=== PATIENT | female | born 1935 | race Caucasian/White ===

== ENCOUNTER 2018-11-09 17:39 | Inpatient (IN) | payer MEDICARE, OTHER ==
[~2018-11-09] VITALS: Ht 162.6 cm; Wt 54.4 kg
[~2018-11-09 17:39] MED LIST: ALEN70TA5 PO; AMOX1TAB9 PO; LEVO50TA7 PO; MIRT7.5T8 PO
[2018-11-09] MEDS ORDERED: SOD CHLORIDE 0.9% 1,000 ML IV STA (18:02)
[2018-11-09] MEDS ORDERED: CEFEPIME 2GM/50 ML (PMX) 50 ML IVPB STA (18:02)
[2018-11-09] MEDS ORDERED: VANCOMYCIN 1 GM (PMX) 250 ML IVPB ONE (18:30)
--- NOTE | 2018-11-09 20:10 | ERD ---
ER Documentation Chief Complaint Chief Complaint MORE ALTERED THAN NORMAL SINCE LAST NIGHT. DEMENTIA HPI This is an 82-year-old female with a history of dementia who seemed a bit more altered and demented last night and today was a bit combative with staff there. Patient will not respond to my questions but will look at me. Very limited history I do not know if she is had a fever or any other issues such as GI symptoms chest pain etc. The patient will not answer any my questions. ROS All systems reviewed and are negative except as per history of present illness. PMhx/Soc Hx Psychiatric Problems: Yes (DEMENTIA, THYROID) Smoking Status: Unknown if ever smoked FmHx Family History: No coronary disease Physical Exam Vitals Vital Signs Date Temp Pulse Resp B/P (MAP) Pulse Ox O2 O2 Flow FiO2 Time Delivery Rate 11/09/18 78 21 136/66 93 Nasal 2.0 20:35 (89) Cannula 11/09/18 Nasal 2 18:38 Cannula 11/09/18 82 19 115/72 92 Nasal 2.0 18:35 (86) Cannula 11/09/18 98.4 90 16 121/61 98 17:48 (81) Physical Exam Const: Well-developed, well-nourished Head: Atraumatic, normocephalic Eyes: Normal Conjunctiva, PERRLA, EOMI, normal sclera, no nystagmus ENT: Normal External Ears, Nose and Mouth, moist mucus membranes. Neck: Full range of motion. No meningismus, no lymphadenopathy. Resp: Clear to auscultation bilaterally, no wheezing, rhonchi, rales Cardio: Regular rate and rhythm, no murmurs, S1 S2 present Abd: Soft, non tender x 4, non distended. Normal bowel sounds, no guarding or rebound, no pulsitile abdominal masses or bruits Skin: No petechiae or rashes, no ecchymosis , no maculopapular rash Back: No midline or flank tenderness Ext: No cyanosis, or edema, FROM x 4, normal inspection, neurovascularly intact x 4 Neur: Awake and alert, STR 5/5 x 4, sensation intact x 4, no focal findings, cerebellum intact Psych: Patient will look at me but not talk to me she is very flat Result Diagram: 11/09/18181611/09/181816 Results 24 hrs Laboratory Tests Test 11/09/18 18:16 11/09/18 18:17 11/09/18 20:13 POC Venous Lactate 1.4 mmol/L White Blood Count 11.5 10^3/ul Red Blood Count 5.09 10^6/ul Hemoglobin 14.5 g/dl Hematocrit 45.6 % Mean Corpuscular Volume 89.6 fl Mean Corpuscular Hemoglobin 28.5 pg Mean Corpuscular 31.8 g/dl Hemoglobin Concent Red Cell Distribution Width 13.2 % Platelet Count 357 10^3/UL Mean Platelet Volume 9.6 fl Immature Granulocytes % 0.700 % Neutrophils % 69.9 % Lymphocytes % 13.0 % Monocytes % 8.8 % Eosinophils % 7.0 % Basophils % 0.6 % Nucleated Red Blood Cells % 0.0 /100WBC Immature Granulocytes # 0.080 10^3/ul Neutrophils # 8.0 10^3/ul Lymphocytes # 1.5 10^3/ul Monocytes # 1.0 10^3/ul Eosinophils # 0.8 10^3/ul Basophils # 0.1 10^3/ul Nucleated Red Blood Cells # 0.0 10^3/ul Prothrombin Time 13.1 Sec Prothrombin Time Ratio 1.0 INR International 0.98 Normalized Ratio Activated Partial Thromboplast 30.9 Sec Time Sodium Level 141 mmol/L Potassium Level 3.8 mmol/L Chloride Level 102 mmol/L Carbon Dioxide Level 32 mmol/L Anion Gap 7 Blood Urea Nitrogen 13 mg/dl Creatinine 0.74 mg/dl Est Glomerular Filtrat mL/min Rate mL/min Glucose Level 113 mg/dl Calcium Level 9.4 mg/dl Total Bilirubin 0.8 mg/dl Direct Bilirubin 0.00 mg/dl Indirect Bilirubin 0.8 mg/dl Aspartate Amino 18 IU/L Transf (AST/SGOT) Alanine 10 IU/L Aminotransferase (ALT/SGPT) Alkaline Phosphatase 85 IU/L Troponin I < 0.012 ng/ml Total Protein 6.8 g/dl Albumin 3.3 g/dl Globulin 3.50 g/dl Albumin/Globulin Ratio 0.94 Urine Color YELLOW Urine Clarity CLEAR Urine pH 6.0 Urine Specific [place] 1.012 Urine Ketones TRACE mg/dL Urine Nitrite POSITIVE mg/dL Urine Bilirubin NEGATIVE mg/dL Urine Urobilinogen NEGATIVE mg/dL Urine Leukocyte Esterase 1+ Parish/ul Urine Microscopic RBC 0 /HPF Urine Microscopic WBC 13 /HPF Urine Bacteria FEW /HPF Urine Hemoglobin 1+ mg/dL Urine Glucose NEGATIVE mg/dL Urine Total Protein NEGATIVE mg/dl Current Medications Medications Dose Sig/Thais Start Time Status Last (Trade) Ordered Route PRN Stop Time Admin Dose Reason Admin Cefepime HCl 50 ml @ ONCE STAT 11/09/18 DC 11/09/18 100 mls/hr IVPB 18:02 18:34 11/09/18 18:31 Vancomycin 250 ml @ ONCE ONCE 11/09/18 DC 11/09/18 HCl 125 mls/hr IVPB 18:30 19:53 11/09/18 20:29 Sodium 1,000 ml @ Q1H STAT 11/09/18 DC 11/09/18 Chloride 1,000 mls/hr IV 18:02 18:34 11/09/18 19:01 Procedures/[place] [address] Radiology Main Line: [phone] DIAGNOSTIC IMAGING REPORT Patient: CASSIE THOMPSON : 1935 Age: 82 Sex: F MR #: [id number] DOS: 11/09/18 1802 Ordering MD: ADRY WADSWORTH DO Location: E/R Room/Bed: PROCEDURE: XR Chest. CLINICAL INDICATION: Shortness of breath. TECHNIQUE: Single frontal view. COMPARISON: None. FINDINGS: There is consolidation overlying the left upper lung field. There is left lung base consolidation as well as likely a small left pleural effusion. There are increased interstitial markings as well as right lung base atelectasis versus scarring. The heart size is normal. There is a tortuous calcified thoracic aorta. There is no pleural effusion. There is no pneumothorax. IMPRESSION: There is consolidation overlying the left upper lung field. There is left lung base consolidation as well as likely a small left pleural effusion. There are increased interstitial markings as well as right lung base atelectasis versus scarring. Follow-up to resolution to exclude underlying neoplasm. RPTAT: QQ Isabel Basurto Physician Date Time Electronically viewed and signed by Isabel Basurto Physician on 11/09/2018 18:46 RD/ CC: ADRY WADSWORTH DO [id number] EKG: Rate/Rhythm: Normal sinus rhythm with PVCs QRS, ST, QT: NORMAL ME, QRS, QT] Impression: NORMAL EKG [place] [id number] Radiology Main Line: [phone] DIAGNOSTIC IMAGING REPORT Patient: CASSIE THOMPSON : 1935 Age: 82 Sex: F MR #: [id number] DOS: 11/09/18 180 Ordering MD: ADRY WADSWORTH DO Location: E/R Room/Bed: PROCEDURE: CT Abdomen and Pelvis without contrast. CLINICAL INDICATION: Pain. TECHNIQUE: CT scan of the abdomen and pelvis was performed on a multidetector slice CT scanner. No intravenous contrast material was utilized. Sagittal and coronal reformatted images were obtained from the axial source images. Images were reviewed on a high-resolution PACS workstation. Exam CTDlvol = a point save mGy and DLP = 485 Gy-cm. One of the following 3 dose reduction techniques were used: Automated exposure control; adjustment of the mA and/or kV according to patient size; or use of iterative reconstruction technique. DICOM images are available. COMPARISON: None. FINDINGS: There is no bowel obstruction or ileus. The appendix is not identified. There is no secondary evidence for appendicitis. There are scattered sigmoid colon diverticuli without evidence for diverticulitis. There is no free fluid. The liver is overall normal in size. There are multiple hypodense lesions scattered throughout the liver consistent with cyst, largest in the right lobe 4.1 cm diameter. The gallbladder has been removed. There is no definite biliary ductal dilation. Pancreas is normal in appearance. The spleen is unremarkable. There are no adrenal masses. The aorta is normal caliber. Atherosclerotic vascular calcifications are present. Kidneys are normal in appearance without hydronephrosis, mass or calculus. Ureters are of normal caliber and without evidence for an obstructing calculus. The urinary bladder is normal in appearance. Uterus is unremarkable. The ovaries are not well characterized. Limited evaluation of the lung bases demonstrates bibasilar atelectasis. There are emphysematous changes throughout the lungs. There are atherosclerotic calcifications of the coronary arteries. Heart is mildly enlarged. There are degenerative changes of the lumbar spine. There are L4 spondylitic defects with associated 9.5 mm anterior subluxation of L3-L4. Prominent Schmorl's node superior endplate of L3. There is metal artifact from a left hip bipolar arthroplasty in position. There are multiple lytic with lesions identified, including the T11 posterior lateral vertebral body and pedicle, right posterior lamina and transverse process of L3, right iliac wing and ischium and left ilium. IMPRESSION: 1. Multiple scattered osseous lytic lesions, suspicious for metastatic disease. 2. No bowel obstruction or ileus. 3. Scattered sigmoid colon diverticuli without evidence for diverticulitis. 4. Appendix not identified. No secondary evidence for appendicitis. 5. Multiple liver lesions, likely representing cyst. Status post cholecystectomy. 6. No obstructive uropathy. 7. Status post left hip bipolar arthroplasty in anatomic position. 8. Degenerate changes lumbar C9 as described above. 9. Emphysematous changes of the lungs. RPTAT: HMVK .Harley Murray MD, MD Date Time Electronically viewed and signed by .Harley Murray MD, on 11/09/2018 20:18 .K/ CC: ADRY WADSWORTH DO [id number] Patient has a normal lactic acid. Will admit for altered mental status of the patient's recall since she has been here but does have a left lung consolidation could be pneumonia she had blood cultures and given antibiotics we will admit panel Departure Diagnosis: Primary Impression: Altered mental status Altered mental status type: unspecified Qualified Codes: R41.82 - Altered mental status, unspecified Additional Impression: Pneumonia Pneumonia type: due to unspecified organism Laterality: left Lung location: lower lobe of lung Qualified Codes: J18.1 - Lobar pneumonia, unspecified organism Condition: Stable ADRY WADSWORTH DO Nov 09, 2018 20:08
[2018-11-09] MEDS ORDERED: SOD CHLORIDE 0.9% 1,000 ML IV SCH (21:30)
[2018-11-09] MEDS ORDERED: ACETAMINOPHEN 325 MG TAB PO PRN ×2 (21:30→22:00)
[2018-11-09] MEDS ORDERED: ONDANSETRON 4 MG INJ IV PRN ×2 (21:30→22:00)
[2018-11-09] MEDS ORDERED: NACL 0.9% 3 ML SYG IV SCH (22:00)
[2018-11-09] MEDS ORDERED: DOCUSATE SODIUM 100 MG CAP PO PRN (22:00)
[2018-11-09] MEDS ORDERED: BISACODYL (EC) 5 MG TAB PO PRN (22:00)
[2018-11-09] MEDS ORDERED: VANCOMYCIN IV PER PHARMACY XX SCH (22:00)
--- NOTE | 2018-11-09 22:45 | HP ---
Date/Time of Note Date/Time of Note DATE: 11/09/18 TIME: 22:45 Assessment/Plan VTE Prophylaxis SCD applied (from Nsg): Yes Pharmacological prophylaxis: NA/contraindicated Pharm contraindication: low risk/ambulating Lines/Catheters IV Catheter Type (from Nrsg): [place] Assessment/Plan Hospital Course This is a 82-year-old female being admitted to the telemetry floor but will be downgraded to [facility] #1 acute on chronic encephalopathy: Likely secondary to underlying healthcare associated pneumonia, urinary tract infection. Patient was initiated on broad- spectrum antibiotics. I did review the POLST form which did focus on comfort based treatment only. I will keep her on antibiotics at the current time, we will need to get in touch with next of kin regards to discussing the patient's current care and decide on if whether we should discontinue the antibiotics based on the wishes on the POLST form. Will monitor for any signs of agitation. #2 Healthcare associated pneumonia: On broad-spectrum antibiotics, will need to discuss with next of kin/POA in regards to continuing treatment #3 urinary tract infection: Broad-spectrum antibiotics, will need to discuss with next of kin/POA in regards to continue treatment #4 Suspect malignancy: Based on the chest x-ray and CT the abdomen pelvis there appears to be signs of metastatic disease. Prior to me being told about the P OLST form I did already order a CT of the chest to further evaluate we are awaiting the results for this. However given her DNR/DNI status and comfort based treatment listed on her POLST form we we will hold off on pursuing any further diagnosis of this. We will need to discuss with next of kin/POA. #4 osteoporosis: Resume as indicated #4 hypothyroidism: Continue levothyroxine check TSH #5 dementia: Resume mirtazapine when indicated #6 DVT GI prophylaxis: SCDs, no GI prophylaxis indicated #7 CODE STATUS: POLST form stating DNR/DNI, comfort based treatment, no artificial means of nutrition. Will need to discuss with family/POA regarding treatment plan and whether they would even want continue antibiotics at this point. Further treatment strategy will be implemented as per the clinical course Result Diagram: 11/09/18181611/09/187 Results 24hrs Laboratory Tests Test 11/09/18 18:16 11/09/18 18:17 11/09/18 20:13 POC Venous Lactate 1.4 White Blood Count 11.5 H Red Blood Count 5.09 Hemoglobin 14.5 Hematocrit 45.6 Mean Corpuscular Volume 89.6 Mean Corpuscular Hemoglobin 28.5 L Mean Corpuscular Hemoglobin Concent 31.8 L Red Cell Distribution Width 13.2 Platelet Count 357 Mean Platelet Volume 9.6 Immature Granulocytes % 0.700 H Neutrophils % 69.9 Lymphocytes % 13.0 L Monocytes % 8.8 Eosinophils % 7.0 Basophils % 0.6 Nucleated Red Blood Cells % 0.0 Immature Granulocytes # 0.080 H Neutrophils # 8.0 H Lymphocytes # 1.5 Monocytes # 1.0 H Eosinophils # 0.8 H Basophils # 0.1 Nucleated Red Blood Cells # 0.0 Prothrombin Time 13.1 Prothrombin Time Ratio 1.0 INR International Normalized Ratio 0.98 Activated Partial Thromboplast Time 30.9 Sodium Level 141 Potassium Level 3.8 Chloride Level 102 Carbon Dioxide Level 32 H Anion Gap 7 Blood Urea Nitrogen 13 Creatinine 0.74 Est Glomerular Filtrat Rate mL/min Glucose Level 113 Calcium Level 9.4 Total Bilirubin 0.8 Direct Bilirubin 0.00 Indirect Bilirubin 0.8 Aspartate Amino Transf (AST/SGOT) 18 Alanine Aminotransferase (ALT/SGPT) 10 L Alkaline Phosphatase 85 Troponin I < 0.012 Total Protein 6.8 Albumin 3.3 Globulin 3.50 H Albumin/Globulin Ratio 0.94 Urine Color YELLOW Urine Clarity CLEAR Urine pH 6.0 Urine Specific [place] 1.012 Urine Ketones TRACE A Urine Nitrite POSITIVE A Urine Bilirubin NEGATIVE Urine Urobilinogen NEGATIVE Urine Leukocyte Esterase 1+ H Urine Microscopic RBC 0 Urine Microscopic WBC 13 H Urine Bacteria FEW A Urine Hemoglobin 1+ H Urine Glucose NEGATIVE Urine Total Protein NEGATIVE HPI/ROS Admit Date/Time Admit Date/Time Hx of Present Illness Chief complaint: Altered mental status, combative The following history was obtained from the ED physician documentation as patient not to provide history given her dementia This is an 82-year-old female with a history of dementia who presented from [facility] for more altered and combative behavior. According to staff the patient had been noticeably more altered and she was combative with the staff. Unknown what her baseline is. She does turn to sound and look however she does not respond to questions. She was the same way apparently in the emergency room as well. There is no family available. In the emergency department she had imaging studies are performed including a CT of the abdomen pelvis which showed signs of possible pneumonia. She also had a urinalysis performed that was positive for nitrites and leukoesterase. Upon further review of the chart there was a POLST form that stated CODE STATUS which was DNR/DNI with comfort focused treatments And no artificial means of nutrition. A CT scan of the chest was ordered prior to me being notified of the POLST form. Allergies: Unknown Medications: Alendronate 70 mg p.o. q. 7 days Levothyroxine 50 mcg p.o. daily Mirtazapine 7.5 mg p.o. at bedtime ROS Subjective hx not possible: pt non-verbal (Patient has dementia, not responding to questions, unknown baseline) PMH/Family/Social Past Medical History Osteoporosis Hypothyroidism Dementia Medications Current Medications Sodium Chloride 1,000 ml @ 80 mls/hr [id number] IV ; Start 11/09/18 at 21:30; Stop 11/10/18 at 09:59 Sodium Chloride 1,000 ml @ 70 mls/hr [id number] IV ; Start 11/09/18 at 21:35; Stop 11/10/18 at 21:34 IV Flush (NS 3 ml) 3 ml PER PROTOCOL IV ; Start 11/09/18 at 22:00 Ondansetron HCl (Zofran Inj) 4 mg Q6H PRN IV NAUSEA/VOMITING; Start 11/09/18 at 22:00 Acetaminophen (Tylenol Tab) 650 mg Q6H PRN PO .PAIN 1-3 OR TEMP; Start 11/09/18 at 22:00 Docusate Sodium (Colace) 100 mg Q12H PRN PO .CONSTIPATION; Start 11/09/18 at 22:00 Bisacodyl (Dulcolax) 5 mg DAILY PRN PO .CONSTIPATION; Start 11/09/18 at 22:00 Enoxaparin Sodium (Lovenox) 40 mg DAILY SC ; Start 11/10/18 at 09:00 Vancomycin HCl (Vanco Iv Per Pharmacy) VANCOMYCIN PER PHARMACY PER PROTOCOL XX ; Start 11/09/18 at 22:00 Cefepime HCl 50 ml @ 100 mls/hr Q12 IVPB ; Start 11/10/18 at 09:00 Vancomycin HCl 250 ml @ 125 mls/hr Q24H IVPB ; Start 11/10/18 at 20:00 Coded Allergies: Unknown: Unable to obtain (Unverified , 11/09/18) PT IS UNABLE TO VERIFY Past Surgical History Unknown unable to obtain Family History Significant Family History: other (Unknown unable to obtain) Social History Unknown unable to obtain Smoking Status: Unknown if ever smoked Exam/Review of Systems Vital Signs Vitals Vital Signs Date Temp Pulse Resp B/P (MAP) Pulse Ox O2 O2 Flow FiO2 Time Delivery Rate 11/09/18 98.6 82 18 103/65 93 Nasal 2.0 22:25 (78) Cannula Exam Exam General: Patient is awake and does look around and turns to sound but is not verbal responding to questions HEENT: Atraumatic, normocephalic. The pupils are equal, round and reactive. Extraocular motor are intact Neck: Supple with full range of motion. No rigidity or meningismus Chest: Nontender Lungs: Clear to auscultation bilaterally no crackles rales or wheezing Heart: Normal S1-S2, Regular rhythm and rate. No murmur, S3, or S4 Abdomen: Soft , nontender, nondistended , bowel sounds are present. No guarding no rebound tenderness , No masses or organomegaly. No costovertebral temporal angle mass Extremities: Normal to inspection, no edema no cyanosis Skin: Stage I decubitus ulcers Neurologic: Awake and looking around, but does not respond to commands or answer questions. Additional Comments PROCEDURE: XR Chest. CLINICAL INDICATION: Shortness of breath. TECHNIQUE: Single frontal view. COMPARISON: None. FINDINGS: There is consolidation overlying the left upper lung field. There is left lung base consolidation as well as likely a small left pleural effusion. There are increased interstitial markings as well as right lung base atelectasis versus scarring. The heart size is normal. There is a tortuous calcified thoracic aorta. There is no pleural effusion. There is no pneumothorax. IMPRESSION: There is consolidation overlying the left upper lung field. There is left lung base consolidation as well as likely a small left pleural effusion. There are increased interstitial markings as well as right lung base atelectasis versus scarring. Follow-up to resolution to exclude underlying neoplasm. RPTAT: QQ Physician Amalia Date Time Electronically viewed and signed by Physician Amalia on 11/09/2018 18:46 RD/ CC: ADRY WADSWORTH DO [id number] PROCEDURE: CT Abdomen and Pelvis without contrast. CLINICAL INDICATION: Pain. TECHNIQUE: CT scan of the abdomen and pelvis was performed on a multidetector slice CT scanner. No intravenous contrast material was utilized. Sagittal and coronal reformatted images were obtained from the axial source images. Images were reviewed on a high-resolution PACS workstation. Exam CTDlvol = a point save mGy and DLP = 485 Gy-cm. One of the following 3 dose reduction techniques were used: Automated exposure control; adjustment of the mA and/or kV according to patient size; or use of iterative reconstruction technique. DICOM images are available. COMPARISON: None. FINDINGS: There is no bowel obstruction or ileus. The appendix is not identified. There is no secondary evidence for appendicitis. There are scattered sigmoid colon diverticuli without evidence for diverticulitis. There is no free fluid. The liver is overall normal in size. There are multiple hypodense lesions scattered throughout the liver consistent with cyst, largest in the right lobe 4.1 cm diameter. The gallbladder has been removed. There is no definite biliary ductal dilation. Pancreas is normal in appearance. The spleen is unremarkable. There are no adrenal masses. The aorta is normal caliber. Atherosclerotic vas cular calcifications are present. Kidneys are normal in appearance without hydronephrosis, mass or calculus. Ureters are of normal caliber and without evidence for an obstructing calculus. The urinary bladder is normal in appearance. Uterus is unremarkable. The ovaries are not well characterized. Limited evaluation of the lung bases demonstrates bibasilar atelectasis. There are emphysematous changes throughout the lungs. There are atherosclerotic calcifications of the coronary arteries. Heart is mildly enlarged. There are degenerative changes of the lumbar spine. There are L4 spondylitic defects with associated 9.5 mm anterior subluxation of L3-L4. Prominent Schmorl's node superior endplate of L3. There is metal artifact from a left hip bipolar arthroplasty in position. There are multiple lytic with lesions identified, including the T11 posterior lateral vertebral body and pedicle, right posterior lamina and transverse process of L3, right iliac wing and ischium and left ilium. IMPRESSION: 1. Multiple scattered osseous lytic lesions, suspicious for metastatic disease. 2. No bowel obstruction or ileus. 3. Scattered sigmoid colon diverticuli without evidence for diverticulitis. 4. Appendix not identified. No secondary evidence for appendicitis. 5. Multiple liver lesions, likely representing cyst. Status post cholecystectomy. 6. No obstructive uropathy. 7. Status post left hip bipolar arthroplasty in anatomic position. 8. Degenerate changes lumbar C9 as described above. 9. Emphysematous changes of the lungs. RPTAT: HMVK .Harley Murray MD, MD Date Time Electronically viewed and signed by .Harley Murray MD, on 11/09/2018 20:18 .K/ CC: ADRY WADSWORTH DO [id number] JOHNNY WRIGHT Nov 09, 2018 22:45
[2018-11-09 23:20] VITALS: BP 110/68; PULSE 78; RESP 18
[2018-11-09 23:25] VITALS: Ht 162.6 cm; Wt 54.4 kg
[2018-11-09] MEDS: SOD CHLORIDE 0.9% 1,000 ML IV SCH (23:32)
[2018-11-10 03:12] VITALS: BP 106/58; PULSE 75; RESP 17
[2018-11-10 07:29] VITALS: BP 115/70; PULSE 83; RESP 20
[2018-11-10] MEDS: CEFEPIME 1GM/50 ML (PMX) 50 ML IVPB SCH ×2 (09:37→23:25)
[2018-11-10] MEDS: ENOXAPARIN 40 MG/0.4 ML SYG SC SCH (09:56)
[2018-11-10 11:10] VITALS: BP 111/70; PULSE 79; RESP 20
[2018-11-10] MEDS: SOD CHLORIDE 0.9% 1,000 ML IV SCH (11:21)
[2018-11-10 14:00] VITALS: BP 108/79; PULSE 86; RESP 20
--- NOTE | 2018-11-10 19:29 | PN ---
Date/Time of Note Date/Time of Note DATE: 11/10/18 TIME: 19:23 Assessment/Plan VTE Prophylaxis Risk score (from Ns)>0 risk: 3 SCD applied (from Ns): Yes Pharmacological prophylaxis: NA/contraindicated Pharm contraindication: other Lines/Catheters IV Catheter Type (from Nrsg): Saline Lock Urinary Cath still in place: No Assessment/Plan Hospital Course This is a 82-year-old female being admitted to the telemetry floor but will be downgraded to [facility] #1 Acute on chronic encephalopathy: Likely secondary to underlying sepsis from healthcare associated pneumonia and/or urinary tract infection Continue antibiotics POLST form indicates to focus on comfort based treatment only #2 Healthcare associated pneumonia: On broad-spectrum antibiotics, will need to discuss with next of kin/POA in regards to continuing treatment #3 urinary tract infection: Broad-spectrum antibiotics, will need to discuss with next of kin/POA in regards to continue treatment #4 Left upper lobe consolidation-infectious process versus possible malignancy: CT of the chest was ordered prior to POLST form being made aware of, CT chest shows broad region of consolidation within left upper lobe appearance is nonspecific and may be an infectious or inflammatory process although given presence of multiple lytic osseous lesions and underlying emphysema, concern for malignancy is present No further interventions at this time considering patient's previous wishes Follow-up with POA Continue IV antibiotics #4 osteoporosis: Resume as indicated #4 hypothyroidism: Continue levothyroxine check TSH #5 dementia: Resume mirtazapine when indicated #6 DVT GI prophylaxis: SCDs, no GI prophylaxis indicated CODE STATUS: POLST form stating DNR/DNI, comfort based treatment, no artificial means of nutrition. Will need to discuss with family/POA regarding treatment plan and whether they would even want continue antibiotics at this point. Result Diagram: 11/10/18 0603 11/10/18 0603 Results 24hrs Laboratory Tests Test 11/09/18 20:13 11/10/18 06:03 Urine Color YELLOW Urine Clarity CLEAR Urine pH 6.0 Urine Specific [place] 1.012 Urine Ketones TRACE A Urine Nitrite POSITIVE A Urine Bilirubin NEGATIVE Urine Urobilinogen NEGATIVE Urine Leukocyte Esterase 1+ H Urine Microscopic RBC 0 Urine Microscopic WBC 13 H Urine Bacteria FEW A Urine Hemoglobin 1+ H Urine Glucose NEGATIVE Urine Total Protein NEGATIVE White Blood Count 8.4 # Red Blood Count 4.92 Hemoglobin 13.9 Hematocrit 44.9 Mean Corpuscular Volume 91.3 Mean Corpuscular Hemoglobin 28.3 L Mean Corpuscular Hemoglobin Concent 31.0 L Red Cell Distribution Width 13.5 Platelet Count 326 Mean Platelet Volume 9.7 Immature Granulocytes % 0.700 H Neutrophils % 63.3 Lymphocytes % 16.7 Monocytes % 10.1 Eosinophils % 8.5 H Basophils % 0.7 Nucleated Red Blood Cells % 0.0 Immature Granulocytes # 0.060 H Neutrophils # 5.3 Lymphocytes # 1.4 Monocytes # 0.9 Eosinophils # 0.7 H Basophils # 0.1 Nucleated Red Blood Cells # 0.0 Sodium Level 142 Potassium Level 3.9 Chloride Level 107 Carbon Dioxide Level 29 Anion Gap 6 Blood Urea Nitrogen 10 Creatinine 0.72 Est Glomerular Filtrat Rate mL/min Glucose Level 97 Hemoglobin A1c 5.6 Calcium Level 8.7 Magnesium Level 1.9 Total Bilirubin 0.7 Direct Bilirubin 0.00 Indirect Bilirubin 0.7 Aspartate Amino Transf (AST/SGOT) 17 Alanine Aminotransferase (ALT/SGPT) 13 Alkaline Phosphatase 72 Total Protein 5.9 L Albumin 2.9 L Globulin 3.00 Albumin/Globulin Ratio 0.96 Triglycerides Level 101 Cholesterol Level 123 LDL Cholesterol, Calculated 74 HDL Cholesterol 29 L Cholesterol/HDL Ratio 4.2 Thyroid Stimulating Hormone (TSH) 6.130 H Subjective 24 Hr Interval Summary Constitutional: disoriented Exam/Review of Systems Exam Vitals Vital Signs Date Temp Pulse Resp B/P (MAP) Pulse Ox O2 O2 Flow FiO2 Time Delivery Rate 11/10/18 97.9 86 20 108/79 90 Room Air 14:00 (89) 11/10/18 2.0 08:00 Psych: confusion Respiratory: clear to auscultation Cardiovascular: regular rate and rhythm Gastrointestinal: soft; No distended Musculoskeletal: nl extremities to inspection Results Results 24hrs Laboratory Tests Test 11/09/18 20:13 11/10/18 06:03 Urine Color YELLOW Urine Clarity CLEAR Urine pH 6.0 Urine Specific [place] 1.012 Urine Ketones TRACE A Urine Nitrite POSITIVE A Urine Bilirubin NEGATIVE Urine Urobilinogen NEGATIVE Urine Leukocyte Esterase 1+ H Urine Microscopic RBC 0 Urine Microscopic WBC 13 H Urine Bacteria FEW A Urine Hemoglobin 1+ H Urine Glucose NEGATIVE Urine Total Protein NEGATIVE White Blood Count 8.4 # Red Blood Count 4.92 Hemoglobin 13.9 Hematocrit 44.9 Mean Corpuscular Volume 91.3 Mean Corpuscular Hemoglobin 28.3 L Mean Corpuscular Hemoglobin Concent 31.0 L Red Cell Distribution Width 13.5 Platelet Count 326 Mean Platelet Volume 9.7 Immature Granulocytes % 0.700 H Neutrophils % 63.3 Lymphocytes % 16.7 Monocytes % 10.1 Eosinophils % 8.5 H Basophils % 0.7 Nucleated Red Blood Cells % 0.0 Immature Granulocytes # 0.060 H Neutrophils # 5.3 Lymphocytes # 1.4 Monocytes # 0.9 Eosinophils # 0.7 H Basophils # 0.1 Nucleated Red Blood Cells # 0.0 Sodium Level 142 Potassium Level 3.9 Chloride Level 107 Carbon Dioxide Level 29 Anion Gap 6 Blood Urea Nitrogen 10 Creatinine 0.72 Est Glomerular Filtrat Rate mL/min Glucose Level 97 Hemoglobin A1c 5.6 Calcium Level 8.7 Magnesium Level 1.9 Total Bilirubin 0.7 Direct Bilirubin 0.00 Indirect Bilirubin 0.7 Aspartate Amino Transf (AST/SGOT) 17 Alanine Aminotransferase (ALT/SGPT) 13 Alkaline Phosphatase 72 Total Protein 5.9 L Albumin 2.9 L Globulin 3.00 Albumin/Globulin Ratio 0.96 Triglycerides Level 101 Cholesterol Level 123 LDL Cholesterol, Calculated 74 HDL Cholesterol 29 L Cholesterol/HDL Ratio 4.2 Thyroid Stimulating Hormone (TSH) 6.130 H Medications Medication Current Medications Sodium Chloride 1,000 ml @ 70 mls/hr [id number] IV Last administered on 11/09/18at 23:32; Admin Dose 70 MLS/HR; Start 11/09/18 at 21:35; Stop 11/10/18 at 21:34 IV Flush (NS 3 ml) 3 ml PER PROTOCOL IV ; Start 11/09/18 at 22:00 Ondansetron HCl (Zofran Inj) 4 mg Q6H PRN IV NAUSEA/VOMITING; Start 11/09/18 at 22:00 Acetaminophen (Tylenol Tab) 650 mg Q6H PRN PO .PAIN 1-3 OR TEMP; Start 11/09/18 at 22:00 Docusate Sodium (Colace) 100 mg Q12H PRN PO .CONSTIPATION; Start 11/09/18 at 22:00 Bisacodyl (Dulcolax) 5 mg DAILY PRN PO .CONSTIPATION; Start 11/09/18 at 22:00 Enoxaparin Sodium (Lovenox) 40 mg DAILY SC Last administered on 11/10/18at 09:56; Admin Dose 40 MG; Start 11/10/18 at 09:00 Vancomycin HCl (Vanco Iv Per Pharmacy) VANCOMYCIN PER PHARMACY PER PROTOCOL XX ; Start 11/09/18 at 22:00 Cefepime HCl 50 ml @ 100 mls/hr Q12 IVPB Last administered on 11/10/18at 09:37; Admin Dose 100 MLS/HR; Start 11/10/18 at 09:00 Vancomycin HCl 250 ml @ 125 mls/hr Q24H IVPB ; Start 11/10/18 at 20:00 Levothyroxine Sodium (Synthroid) 50 mcg BEFORE BREAKFAST PO ; Start 11/11/18 at 07:00 ANNMARIE VINCENT Nov 10, 2018 19:29
[2018-11-10 19:45] VITALS: BP 121/76; PULSE 75; RESP 20
[2018-11-10] MEDS: VANCOMYCIN 1 GM 250 ML IVPB SCH (20:20)
[2018-11-10] MEDS: MIRTAZAPINE 15 MG TAB PO SCH (22:41)
[2018-11-11] MEDS ORDERED: HALOPERIDOL 5 MG INJ IM ONE (01:30)
[2018-11-11 02:12] VITALS: BP 104/59; PULSE 82; RESP 20
[2018-11-11] MEDS: SOD CHLORIDE 0.9% 1,000 ML IV SCH ×2 (05:44→20:18)
[2018-11-11] MEDS: LEVOTHYROXINE 50 MCG TAB PO SCH (06:26)
[2018-11-11 07:45] VITALS: BP 96/55; PULSE 69; RESP 18
[2018-11-11] MEDS: CEFEPIME 1GM/50 ML (PMX) 50 ML IVPB SCH ×2 (09:31→22:59)
[2018-11-11] MEDS: ENOXAPARIN 40 MG/0.4 ML SYG SC SCH (09:32)
--- NOTE | 2018-11-11 12:02 | PN ---
Date/Time of Note Date/Time of Note DATE: 11/11/18 TIME: 11:43 Assessment/Plan VTE Prophylaxis Risk score (from Ns)>0 risk: 7 SCD applied (from Ns): Yes Pharmacological prophylaxis: LMWH Lines/Catheters IV Catheter Type (from Nrs): Peripheral IV Urinary Cath still in place: No Assessment/Plan Assessment/Plan 1. Acute on chronic encephalopathy, infection related 2. UTI, on antibiotics 3. Left upper lobe lesion, likely malignancy with post obstructive pneumonia, antibiotics with vancomycin and cefepime, I had a discussion about the biopsy issue with DPOA today 4. Multiple scattered osseous lytic lesions, suspicious for metastatic disease from lung cancer 5. Hypothyroidism: Continue levothyroxine check TSH 6. dementia, severe, chronic 7. DVT prophylaxis: lovenox 8. Code status: DNR Result Diagram: 11/10/18 0603 11/10/18 0603 Subjective 24 Hr Interval Summary Free Text/Dictation alert and confused, no respiratory distress Exam/Review of Systems Exam Vitals Vital Signs Date Temp Pulse Resp B/P (MAP) Pulse Ox O2 O2 Flow FiO2 Time Delivery Rate 11/11/18 97.6 69 18 96/55 (69) 94 07:45 11/11/18 Room Air 02:12 11/10/18 2.0 20:00 Intake and Output 11/10/18 11/10/18 11/11/18 1515:00 23:00 07:00 IntakeIntake Total 600 ml 300 ml BalanceBalance 600 ml 300 ml Constitutional: alert, well developed Head: normocephalic, atraumatic Eyes: nl conjunctiva, EOMI, nl lids, PERRL ENMT: nl external ears & nose, nl lips & teeth, nl nasal mucosa & septum Neck: supple, non-tender Respiratory: crackles/rales (on left) Cardiovascular: regular rate and rhythm, nl pulses; No bruits, No diastolic murmur, No edema, No gallop, No irregular rhythm, No jugular venous distention (JVD), No murmurs/extra sounds, No rub, No systolic murmur, No S3, No S4, No other Gastrointestinal: soft, nl liver, spleen, non-tender; No ascites, No bowel sounds, No distended, No firm, No hepatomegaly, No mass, No rebound or guarding, No splenomegaly, No surgical scars, No tender, No other Musculoskeletal: nl extremities to inspection Extremities: normal pulses; No calf tenderness, No cyanosis, No clubbing, No edema, No pitting pedal edema, No palpable cord, No tenderness, No other Neurological: CROP SUPERVISOR II-XII intact, confused Medications Medication Current Medications IV Flush (NS 3 ml) 3 ml PER PROTOCOL IV ; Start 11/09/18 at 22:00 Ondansetron HCl (Zofran Inj) 4 mg Q6H PRN IV NAUSEA/VOMITING; Start 11/09/18 at 22:00 Acetaminophen (Tylenol Tab) 650 mg Q6H PRN PO .PAIN 1-3 OR TEMP; Start 11/09/18 at 22:00 Docusate Sodium (Colace) 100 mg Q12H PRN PO .CONSTIPATION; Start 11/09/18 at 22:00 Bisacodyl (Dulcolax) 5 mg DAILY PRN PO .CONSTIPATION; Start 11/09/18 at 22:00 Enoxaparin Sodium (Lovenox) 40 mg DAILY SC Last administered on 11/11/18at 09:32; Admin Dose 40 MG; Start 11/10/18 at 09:00 Vancomycin HCl (Vanco Iv Per Pharmacy) VANCOMYCIN PER PHARMACY PER PROTOCOL XX ; Start 11/09/18 at 22:00 Cefepime HCl 50 ml @ 100 mls/hr Q12 IVPB Last administered on 11/11/18at 09:31; Admin Dose 100 MLS/HR; Start 11/10/18 at 09:00 Vancomycin HCl 250 ml @ 125 mls/hr Q24H IVPB Last administered on 11/10/18at 2 0:20; Admin Dose 125 MLS/HR; Start 11/10/18 at 20:00 Levothyroxine Sodium (Synthroid) 50 mcg BEFORE BREAKFAST PO Last administered on 11/11/18 06:26; Admin Dose 50 MCG; Start 11/11/18 at 07:00 Mirtazapine (Remeron) 7.5 mg HS PO Last administered on 11/10/18at 22:41; Admin Dose 7.5 MG; Start 11/10/18 at 21:00 Sodium Chloride 1,000 ml @ 70 mls/hr [id number] IV Last administered on 11/11/18at 05:44; Admin Dose 70 MLS/HR; Start 11/11/18 at 06:00 RY DESIR MD Nov 11, 2018 12:02
[2018-11-11 14:26] VITALS: BP 125/73; PULSE 77; RESP 18
[2018-11-11 20:00] VITALS: BP 126/55; PULSE 90; RESP 18
[2018-11-11] MEDS: VANCOMYCIN 1 GM 250 ML IVPB SCH (20:46)
[2018-11-11] MEDS: MIRTAZAPINE 15 MG TAB PO SCH (21:00)
[2018-11-12] MEDS: SOD CHLORIDE 0.9% 1,000 ML IV SCH ×2 (01:32→16:36)
[2018-11-12 02:00] VITALS: BP 107/60; PULSE 72; RESP 17
[2018-11-12] MEDS: LEVOTHYROXINE 50 MCG TAB PO SCH (06:07)
[2018-11-12 08:00] VITALS: BP 147/64; PULSE 77; RESP 16
[2018-11-12] MEDS: CEFEPIME 1GM/50 ML (PMX) 50 ML IVPB SCH ×2 (08:48→20:27)
[2018-11-12] MEDS: ENOXAPARIN 40 MG/0.4 ML SYG SC SCH (08:48)
--- NOTE | 2018-11-12 10:47 | CONS ---
Assessment/Plan Assessment/Plan Assessment/Plan (Daily) Assessment and recommendations; next 1. Patient admitted with shortness of breath due to possible some element of left upper lobe pneumonia. Lung mass is suspected due to bronchogenic carcinoma with possibly metastasis. 2. Dementia. 3. History of hypothyroidism. Continue current supportive care. If tissue diagnosis is desired a CT biopsy can be done of the left upper lobe lesion if the family wants to pursue that route. Consultation Date/Type/Reason Admit Date/Time Date of Consultation: Nov 12, 2018 Type of Consult Pulmonary Pulmonary consult requested for evaluation of pneumonia/lung mass. Patient is a 82-year-old lady with history of dementia admitted for shortness of breath. Patient underwent chest x-ray which is showing infiltrative changes in left upper lobe. Patient subsequently had a CT of the chest done which is showing a masslike lesion in the left upper lobe. Patient by herself is a very poor historian and history was obtained from medical records. Patient however did not appear to be in any distress. Past medical history; 1. History of hypothyroidism 2. Dementia Medications; reviewed Allergies; not available. Social history; not available. Occupational history, family history, not available. Review of system; unable to be obtained. General exam; elderly woman, currently no distress. Not much communicative. Currently no distress. Date/Time of Note DATE: 11/12/18 TIME: 10:44 Past Medical History Home Meds Reported Medications Mirtazapine* (Mirtazapine*) 7.5 Mg Tablet, 7.5 MG PO HS, TAB 11/10/18 Alendronate Sodium* (Fosamax*) 70 Mg Tablet, 70 MG PO Q7D, #4 TAB 11/10/18 Levothyroxine Sodium* (Levothyroxine Sodium*) 50 Mcg Tablet, 50 MCG PO BEFORE BREAKFAST, #30 TAB 11/10/18 Medications Current Medications IV Flush (NS 3 ml) 3 ml PER PROTOCOL IV ; Start 11/09/18 at 22:00 Ondansetron HCl (Zofran Inj) 4 mg Q6H PRN IV NAUSEA/VOMITING; Start 11/09/18 at 22:00 Acetaminophen (Tylenol Tab) 650 mg Q6H PRN PO .PAIN 1-3 OR TEMP; Start 11/09/18 at 22:00 Docusate Sodium (Colace) 100 mg Q12H PRN PO .CONSTIPATION; Start 11/09/18 at 2 2:00 Bisacodyl (Dulcolax) 5 mg DAILY PRN PO .CONSTIPATION; Start 11/09/18 at 22:00 Enoxaparin Sodium (Lovenox) 40 mg DAILY SC Last administered on 11/12/18at 08:48; Admin Dose 40 MG; Start 11/10/18 at 09:00 Vancomycin HCl (Vanco Iv Per Pharmacy) VANCOMYCIN PER PHARMACY PER PROTOCOL XX ; Start 11/09/18 at 22:00 Cefepime HCl 50 ml @ 100 mls/hr Q12 IVPB Last administered on 11/12/18at 08:48; Admin Dose 100 MLS/HR; Start 11/10/18 at 09:00 Vancomycin HCl 250 ml @ 125 mls/hr Q24H IVPB Last administered on 11/11/18at 20:46; Admin Dose 125 MLS/HR; Start 11/10/18 at 20:00 Levothyroxine Sodium (Synthroid) 50 mcg BEFORE BREAKFAST PO Last administered on 11/11/18at 06:26; Admin Dose 50 MCG; Start 11/11/18 at 07:00 Mirtazapine (Remeron) 7.5 mg HS PO Last administered on 11/10/18at 22:41; Admin Dose 7.5 MG; Start 11/10/18 at 21:00 Sodium Chloride 1,000 ml @ 70 mls/hr [id number] IV Last administered on 11/12/18at 01:32; Admin Dose 70 MLS/HR; Start 11/11/18 at 06:00 Miscellaneous Information (*Rx Drug Level Order Reminder*) 1 1900 ONCE XX ; Start 11/12/18 at 19:00; Stop 11/12/18 at 19:01 Allergies: Coded Allergies: Unknown: Unable to obtain (Unverified , 11/09/18) PT IS UNABLE TO VERIFY Social History Smoking Status: Unknown if ever smoked Exam/Review of Systems Exam Vitals Vital Signs Date Temp Pulse Resp B/P (MAP) Pulse Ox O2 O2 Flow FiO2 Time Delivery Rate 11/12/18 97.6 77 16 147/64 95 08:00 (91) 11/11/18 Room Air 02:12 11/10/18 2.0 20:00 Intake and Output 11/11/18 11/11/18 11/12/18 1515:00 23:00 07:00 IntakeIntake Total 140 ml 750 ml 900 ml BalanceBalance 140 ml 750 ml 900 ml Exam HEENT exam; supple neck, no JVD. No lymphadenopathy. Midline trachea. No thyromegaly. No neck masses. Pupils are small bilaterally. Chest exam; diminished breath sounds bilaterally. No added sounds. S1-S2 audible, no murmurs. Regular rhythm. Abdomen exam; soft, no organomegaly. Bowel sounds audible. Extremity exam; no peripheral edema clubbing. LAY OUT FORMER exam; patient is noncommunicative. Results Result Diagram: 11/12/18 0545 11/12/18 0545 Results 24hrs Laboratory Tests Test 11/12/18 05:45 White Blood Count 9.5 Red Blood Count 5.61 H Hemoglobin 15.9 Hematocrit 51.3 H Mean Corpuscular Volume 91.4 Mean Corpuscular Hemoglobin 28.3 L Mean Corpuscular Hemoglobin Concent 31.0 L Red Cell Distribution Width 13.5 Platelet Count 347 Mean Platelet Volume 10.4 Immature Granulocytes % 0.800 H Neutrophils % 64.5 Lymphocytes % 19.2 Monocytes % 8.9 Eosinophils % 5.9 Basophils % 0.7 Nucleated Red Blood Cells % 0.0 Immature Granulocytes # 0.080 H Neutrophils # 6.1 Lymphocytes # 1.8 Monocytes # 0.8 Eosinophils # 0.6 H Basophils # 0.1 Nucleated Red Blood Cells # 0.0 Sodium Level 145 H Potassium Level 4.4 Chloride Level 107 Carbon Dioxide Level 25 Anion Gap 13 # Blood Urea Nitrogen 8 Creatinine 0.73 Est Glomerular Filtrat Rate mL/min Glucose Level 86 Calcium Level 9.3 Medications Medication Current Medications IV Flush (NS 3 ml) 3 ml PER PROTOCOL IV ; Start 11/09/18 at 22:00 Ondansetron HCl (Zofran Inj) 4 mg Q6H PRN IV NAUSEA/VOMITING; Start 11/09/18 at 22:00 Acetaminophen (Tylenol Tab) 650 mg Q6H PRN PO .PAIN 1-3 OR TEMP; Start 11/09/18 at 22:00 Docusate Sodium (Colace) 100 mg Q12H PRN PO .CONSTIPATION; Start 11/09/18 at 22:00 Bisacodyl (Dulcolax) 5 mg DAILY PRN PO .CONSTIPATION; Start 11/09/18 at 22:00 Enoxaparin Sodium (Lovenox) 40 mg DAILY SC Last administered on 11/12/18 08:48; Admin Dose 40 MG; Start 11/10/18 at 09:00 Vancomycin HCl (Vanco Iv Per Pharmacy) VANCOMYCIN PER PHARMACY PER PROTOCOL XX ; Start 11/09/18 at 22:00 Cefepime HCl 50 ml @ 100 mls/hr Q12 IVPB Last administered on 11/12/18at 08:48; Admin Dose 100 MLS/HR; Start 11/10/18 at 09:00 Vancomycin HCl 250 ml @ 125 mls/hr Q24H IVPB Last administered on 11/11/18 20:46; Admin Dose 125 MLS/HR; Start 11/10/18 at 20:00 Levothyroxine Sodium (Synthroid) 50 mcg BEFORE BREAKFAST PO Last administered on 11/11/18 06:26; Admin Dose 50 MCG; Start 11/11/18 at 07:00 Mirtazapine (Remeron) 7.5 mg HS PO Last administered on 11/10/18at 22:41; Admin Dose 7.5 MG; Start 11/10/18 at 21:00 Sodium Chloride 1,000 ml @ 70 mls/hr [id number] IV Last administered on 11/12/18 01:32; Admin Dose 70 MLS/HR; Start 11/11/18 at 06:00 Miscellaneous Information (*Rx Drug Level Order Reminder*) 1 3840 ONCE XX ; Start 11/12/18 at 19:00; Stop 11/12/18 at 19:01 STEVEN YODER Nov 12, 2018 10:47
--- NOTE | 2018-11-12 12:37 | PN ---
Date/Time of Note Date/Time of Note DATE: 11/12/18 TIME: 12:35 Assessment/Plan VTE Prophylaxis Risk score (from Ns)>0 risk: 7 SCD applied (from Ns): Yes Pharmacological prophylaxis: LMWH Lines/Catheters IV [facility] ([facility] Peripheral IV Urinary Cath still in place: No Assessment/Plan Assessment/Plan 1. Acute on chronic encephalopathy, infection related 2. UTI, on antibiotics 3. Left upper lobe lesion, likely malignancy with post obstructive pneumonia, antibiotics with vancomycin and cefepime, I had a discussion about the biopsy issue with DPOA, no further biopsy or intervention 4. Multiple scattered osseous lytic lesions, suspicious for metastatic disease from lung cancer 5. Hypothyroidism: Continue levothyroxine check TSH 6. dementia, severe, chronic 7. DVT prophylaxis: lovenox 8. Code status: DNR 9. Poor prognosis, hospice eval Result Diagram: 11/12/18 0545 11/12/18 0545 Results 24hrs Laboratory Tests Test 11/12/18 05:45 White Blood Count 9.5 Red Blood Count 5.61 H Hemoglobin 15.9 Hematocrit 51.3 H Mean Corpuscular Volume 91.4 Mean Corpuscular Hemoglobin 28.3 L Mean Corpuscular Hemoglobin Concent 31.0 L Red Cell Distribution Width 13.5 Platelet Count 347 Mean Platelet Volume 10.4 Immature Granulocytes % 0.800 H Neutrophils % 64.5 Lymphocytes % 19.2 Monocytes % 8.9 Eosinophils % 5.9 Basophils % 0.7 Nucleated Red Blood Cells % 0.0 Immature Granulocytes # 0.080 H Neutrophils # 6.1 Lymphocytes # 1.8 Monocytes # 0.8 Eosinophils # 0.6 H Basophils # 0.1 Nucleated Red Blood Cells # 0.0 Sodium Level 145 H Potassium Level 4.4 Chloride Level 107 Carbon Dioxide Level 25 Anion Gap 13 # Blood Urea Nitrogen 8 Creatinine 0.73 Est Glomerular Filtrat Rate mL/min Glucose Level 86 Calcium Level 9.3 Subjective 24 Hr Interval Summary Free Text/Dictation demented, nonverbal, no agitation, no distress Exam/Review of Systems Exam Vitals Vital Signs Date Temp Pulse Resp B/P (MAP) Pulse Ox O2 O2 Flow FiO2 Time Delivery Rate 11/12/18 97.6 77 16 147/64 95 08:00 (91) 11/11/18 Room Air 02:12 11/10/18 2.0 20:00 Intake and Output 11/11/18 11/11/18 11/12/18 1515:00 23:00 07:00 IntakeIntake Total 140 ml 750 ml 900 ml BalanceBalance 140 ml 750 ml 900 ml Constitutional: alert, oriented, well developed Psych: no complaints, nl mood/affect Head: normocephalic, atraumatic Eyes: nl conjunctiva, EOMI, nl lids, PERRL ENMT: nl external ears & nose, nl lips & teeth, nl nasal mucosa & septum Neck: supple, non-tender Respiratory: clear to auscultation, normal air movement; No congested cough, No crackles/rales, No diminished breath sounds, No inter costal retraction, No labored breathing, No respirations, No tactile fremitus, No wheezing, No other Cardiovascular: regular rate and rhythm, nl pulses; No bruits, No diastolic murmur, No edema, No gallop, No irregular rhythm, No jugular venous distention (JVD), No murmurs/extra sounds, No rub, No systolic murmur, No S3, No S4, No other Gastrointestinal: soft, nl liver, spleen, non-tender Musculoskeletal: nl extremities to inspection Extremities: normal pulses; No calf tenderness, No cyanosis, No clubbing, No edema, No pitting pedal edema, No palpable cord, No tenderness, No other Neurological: COAL TRIMMER II-XII intact, confused Results Results 24hrs Laboratory Tests Test 11/12/18 05:45 White Blood Count 9.5 Red Blood Count 5.61 H Hemoglobin 15.9 Hematocrit 51.3 H Mean Corpuscular Volume 91.4 Mean Corpuscular Hemoglobin 28.3 L Mean Corpuscular Hemoglobin Concent 31.0 L Red Cell Distribution Width 13.5 Platelet Count 347 Mean Platelet Volume 10.4 Immature Granulocytes % 0.800 H Neutrophils % 64.5 Lymphocytes % 19.2 Monocytes % 8.9 Eosinophils % 5.9 Basophils % 0.7 Nucleated Red Blood Cells % 0.0 Immature Granulocytes # 0.080 H Neutrophils # 6.1 Lymphocytes # 1.8 Monocytes # 0.8 Eosinophils # 0.6 H Basophils # 0.1 Nucleated Red Blood Cells # 0.0 Sodium Level 145 H Potassium Level 4.4 Chloride Level 107 Carbon Dioxide Level 25 Anion Gap 13 # Blood Urea Nitrogen 8 Creatinine 0.73 Est Glomerular Filtrat Rate mL/min Glucose Level 86 Calcium Level 9.3 Medications Medication Current Medications IV Flush (NS 3 ml) 3 ml PER PROTOCOL IV ; Start 11/09/18 at 22:00 Ondansetron HCl (Zofran Inj) 4 mg Q6H PRN IV NAUSEA/VOMITING; Start 11/09/18 at 22:00 Acetaminophen (Tylenol Tab) 650 mg Q6H PRN PO .PAIN 1-3 OR TEMP; Start 11/09/18 at 22:00 Docusate Sodium (Colace) 100 mg Q12H PRN PO .CONSTIPATION; Start 11/09/18 at 22:00 Bisacodyl (Dulcolax) 5 mg DAILY PRN PO .CONSTIPATION; Start 11/09/18 at 22:00 Enoxaparin Sodium (Lovenox) 40 mg DAILY SC Last administered on 11/12/18at 08:48; Admin Dose 40 MG; Start 11/10/18 at 09:00 Vancomycin HCl (Vanco Iv Per Pharmacy) VANCOMYCIN PER PHARMACY PER PROTOCOL XX ; Start 11/09/18 at 22:00 Cefepime HCl 50 ml @ 100 mls/hr Q12 IVPB Last administered on 11/12/18at 08:48; Admin Dose 100 MLS/HR; Start 11/10/18 at 09:00 Vancomycin HCl 250 ml @ 125 mls/hr Q24H IVPB Last administered on 11/11/18at 20:46; Admin Dose 125 MLS/HR; Start 11/10/18 at 20:00 Levothyroxine Sodium (Synthroid) 50 mcg BEFORE BREAKFAST PO Last administered on 11/11/18at 06:26; Admin Dose 50 MCG; Start 11/11/18 at 07:00 Mirtazapine (Remeron) 7.5 mg HS PO Last administered on 11/10/18at 22:41; Admin Dose 7.5 MG; Start 11/10/18 at 21:00 Sodium Chloride 1,000 ml @ 70 mls/hr [id number] IV Last administered on 11/12/18at 01:32; Admin Dose 70 MLS/HR; Start 11/11/18 at 06:00 Miscellaneous Information (*Rx Drug Level Order Reminder*) 1 6020 ONCE XX ; Start 11/12/18 at 19:00; Stop 11/12/18 at 19:01 RY DESIR MD Nov 12, 2018 12:37
[2018-11-12 14:00] VITALS: BP 107/74; PULSE 79; RESP 14
[2018-11-12 20:00] VITALS: BP 128/71; PULSE 73; RESP 16
[2018-11-12] MEDS: MIRTAZAPINE 15 MG TAB PO SCH (20:26)
[2018-11-13 02:00] VITALS: BP 131/74; PULSE 75; RESP 16
[2018-11-13] MEDS: LEVOTHYROXINE 50 MCG TAB PO SCH (06:08)
[2018-11-13] MEDS: SOD CHLORIDE 0.9% 1,000 ML IV SCH ×2 (06:23→20:36)
[2018-11-13 08:22] VITALS: BP 130/82; PULSE 88; RESP 18
--- NOTE | 2018-11-13 09:45 | CONS ---
Consultation Date/Type/Reason Admit Date/Time Nov 09, 2018 at 21:31 Initial Consult Date 11/12/18 Type of Consult Pulmonary Pulmonary consult requested for evaluation of pneumonia/lung mass. Patient is a 82-year-old lady with history of dementia admitted for shortness of breath. Patient underwent chest x-ray which is showing infiltrative changes in left upper lobe. Patient subsequently had a CT of the chest done which is showing a masslike lesion in the left upper lobe. Patient by herself is a very poor historian and history was obtained from medical records. Patient however did not appear to be in any distress. Past medical history; 1. History of hypothyroidism 2. Dementia Medications; reviewed Allergies; not available. Social history; not available. Occupational history, family history, not available. Review of system; unable to be obtained. General exam; elderly woman, currently no distress. Not much communicative. Currently no distress. Date/Time of Note DATE: 11/13/18 TIME: 09:43 24 HR Interval Summary Free Text/Dictation Patient's condition is markedly improved. Patient is completely awake and alert. Having breakfast on bed. Denies any chest pain, shortness of breath any coughing. General exam; elderly woman, awake alert, currently in no distress. H HEENT exam; supple neck, no JVD. No lymphadenopathy. Midline trachea. No thyromegaly. Patient has dentures in place. No neck masses. Chest exam; diminished but clear breath sounds. S1-S2 audible, no murmurs. Regular rhythm. Abdomen exam; soft, nontender. No organomegaly. Bowel sounds audible. Extremity exam; peripheral edema clubbing. MANAGER SPEECH exam; no focal deficit. Assessment and recommendations; 1. Patient admitted with chest pain with CT scan showing left upper lobe mass/infiltrate. CT abdomen pelvis showing multiple lytic bony lesions with multiple liver lesions as well. Findings are consistent with most likely primary bronchogenic carcinoma with metastasis. 2. Frail state. 3. Dementia. 4. Acute encephalopathy with marked interval resolution. 5. History of hypothyroidism. Continue current supportive care. Consider palliative care. Recommend discha rge on oral antibiotics for 5 days. Combination of doxycycline and Levaquin. Patient is a poor candidate for any kind of work-up regarding lung lesion. Exam/Review of Systems Exam Vitals Vital Signs Date Temp Pulse Resp B/P (MAP) Pulse Ox O2 O2 Flow FiO2 Time Delivery Rate 8/1/19 97.9 88 18 130/82 90 Room Air 08:22 (98) 11/10/18 2.0 20:00 Intake and Output 11/12/18 11/12/18 11/13/18 1515:00 23:00 07:00 IntakeIntake Total 50 ml 520 ml 910 ml BalanceBalance 50 ml 520 ml 910 ml Results Result Diagram: 11/12/18 0545 11/13/18 0517 Results 24hrs Laboratory Tests Test 11/13/18 05:17 Sodium Level 140 Potassium Level 3.7 Chloride Level 107 Carbon Dioxide Level 20 L Anion Gap 13 Blood Urea Nitrogen 8 Creatinine 0.59 Est Glomerular Filtrat Rate mL/min Glucose Level 83 Calcium Level 8.8 Medications Medication Current Medications IV Flush (NS 3 ml) 3 ml PER PROTOCOL IV ; Start 11/09/18 at 22:00 Ondansetron HCl (Zofran Inj) 4 mg Q6H PRN IV NAUSEA/VOMITING; Start 11/09/18 at 22:00 Acetaminophen (Tylenol Tab) 650 mg Q6H PRN PO .PAIN 1-3 OR TEMP; Start 11/09/18 at 22:00 Docusate Sodium (Colace) 100 mg Q12H PRN PO .CONSTIPATION; Start 11/09/18 at 22:00 Bisacodyl (Dulcolax) 5 mg DAILY PRN PO .CONSTIPATION; Start 11/09/18 at 22:00 Enoxaparin Sodium (Lovenox) 40 mg DAILY SC Last administered on 11/12/18at 08:48; Admin Dose 40 MG; Start 11/10/18 at 09:00 Cefepime HCl 50 ml @ 100 mls/hr Q12 IVPB Last administered on 11/12/18at 20:27; Admin Dose 100 MLS/HR; Start 11/10/18 at 09:00 Levothyroxine Sodium (Synthroid) 50 mcg BEFORE BREAKFAST PO Last administered on 11/11/18at 06:26; Admin Dose 50 MCG; Start 11/11/18 at 07:00 Mirtazapine (Remeron) 7.5 mg HS PO Last administered on 11/10/18at 22:41; Admin Dose 7.5 MG; Start 11/10/18 at 21:00 Sodium Chloride 1,000 ml @ 70 mls/hr [id number] IV Last administered on 11/13/18at 06:23; Admin Dose 70 MLS/HR; Start 11/11/18 at 06:00 STEVEN YODER Nov 13, 2018 09:45
[2018-11-13] MEDS: CEFEPIME 1GM/50 ML (PMX) 50 ML IVPB SCH ×2 (09:54→20:32)
[2018-11-13] MEDS: ENOXAPARIN 40 MG/0.4 ML SYG SC SCH (09:55)
--- NOTE | 2018-11-13 14:00 | PN ---
Date/Time of Note Date/Time of Note DATE: 11/13/18 TIME: 13:58 Assessment/Plan VTE Prophylaxis Risk score (from Ns)>0 risk: 9 SCD applied (from Ns): Yes Pharmacological prophylaxis: LMWH Lines/Catheters IV Catheter Type (from Nrs): Peripheral IV Urinary Cath still in place: No Assessment/Plan Assessment/Plan 1. Acute on chronic encephalopathy, infection related, resolved 2. UTI, on antibiotics 3. Left upper lobe lesion, likely malignancy with post obstructive pneumonia, antibiotics with vancomycin and cefepime, I had a discussion about the biopsy issue with DPOA, no further biopsy or intervention 4. Multiple scattered osseous lytic lesions, suspicious for metastatic disease f rom lung cancer 5. Hypothyroidism: Continue levothyroxine check TSH 6. dementia, severe, chronic 7. DVT prophylaxis: lovenox 8. Code status: DNR 9. 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 if she take orals well today Result Diagram: 11/12/18 0545 11/13/18 0517 Results 24hrs Laboratory Tests Test 11/13/18 05:17 Sodium Level 140 Potassium Level 3.7 Chloride Level 107 Carbon Dioxide Level 20 L Anion Gap 13 Blood Urea Nitrogen 8 Creatinine 0.59 Est Glomerular Filtrat Rate mL/min Glucose Level 83 Calcium Level 8.8 Subjective 24 Hr Interval Summary Free Text/Dictation full alert today, no distress Exam/Review of Systems Exam Vitals Vital Signs Date Temp Pulse Resp B/P (MAP) Pulse Ox O2 O2 Flow FiO2 Time Delivery Rate 11/13/18 97.9 88 18 130/82 90 Room Air 08:22 (98) 11/10/18 2.0 20:00 Intake and Output 11/12/18 11/12/18 11/13/18 1515:00 23:00 07:00 IntakeIntake Total 50 ml 520 ml 910 ml BalanceBalance 50 ml 520 ml 910 ml Constitutional: alert, well developed Head: normocephalic, atraumatic Eyes: nl conjunctiva, EOMI, nl lids ENMT: nl external ears & nose, nl lips & teeth, nl nasal mucosa & septum Neck: supple, non-tender Respiratory: clear to auscultation, normal air movement; No congested cough, No crackles/rales, No diminished breath sounds, No intercostal retraction, No labored breathing, No respirations, No tactile fremitus, No wheezing, No other Cardiovascular: regular rate and rhythm, nl pulses; No bruits, No diastolic murmur, No edema, No gallop, No irregular rhythm, No jugular venous distention (JVD), No murmurs/extra sounds, No rub, No systolic murmur, No S3, No S4, No other Gastrointestinal: soft, nl liver, spleen, non-tender Musculoskeletal: nl extremities to inspection Extremities: normal pulses; No calf tenderness, No cyanosis, No clubbing, No edema, No pitting pedal edema, No palpable cord, No tenderness, No other Neurological: UNDERWRITING CLERK II-XII intact, nl speech, confused Results Results 24hrs Laboratory Tests Test 11/13/18 05:17 Sodium Level 140 Potassium Level 3.7 Chloride Level 107 Carbon Dioxide Level 20 L Anion Gap 13 Blood Urea Nitrogen 8 Creatinine 0.59 Est Glomerular Filtrat Rate mL/min Glucose Level 83 Calcium Level 8.8 Medications Medication Current Medications IV Flush (NS 3 ml) 3 ml PER PROTOCOL IV ; Start 11/09/18 at 22:00 Ondansetron HCl (Zofran Inj) 4 mg Q6H PRN IV NAUSEA/VOMITING; Start 11/09/18 at 22:00 Acetaminophen (Tylenol Tab) 650 mg Q6H PRN PO .PAIN 1-3 OR TEMP; Start 11/09/18 at 22:00 Docusate Sodium (Colace) 100 mg Q12H PRN PO .CONSTIPATION; Start 11/09/18 at 22:00 Bisacodyl (Dulcolax) 5 mg DAILY PRN PO .CONSTIPATION; Start 11/09/18 at 22:00 Enoxaparin Sodium (Lovenox) 40 mg DAILY SC Last administered on 11/13/18at 09:55; Admin Dose 40 MG; Start 11/10/18 at 09:00 Cefepime HCl 50 ml @ 100 mls/hr Q12 IVPB Last administered on 11/13/18at 09:54; Admin Dose 100 MLS/HR; Start 11/10/18 at 09:00 Levothyroxine Sodium (Synthroid) 50 mcg BEFORE BREAKFAST PO Last administered on 11/11/18at 06:26; Admin Dose 50 MCG; Start 11/11/18 at 07:00 Mirtazapine (Remeron) 7.5 mg HS PO Last administered on 11/10/18at 22:41; Admin Dose 7.5 MG; Start 11/10/18 at 21:00 Sodium Chloride 1,000 ml @ 70 mls/hr [id number] IV Last administered on 11/13/18at 06:23; Admin Dose 70 MLS/HR; Start 11/11/18 at 06:00 RY DESIR MD Nov 13, 2018 14:00
[2018-11-13 14:52] VITALS: BP 126/80; PULSE 80; RESP 18
[2018-11-13 20:00] VITALS: BP 115/67; PULSE 96; RESP 18
[2018-11-13] MEDS: MIRTAZAPINE 15 MG TAB PO SCH (20:32)
[2018-11-14 02:00] VITALS: BP 134/71; PULSE 63; RESP 18
[2018-11-14] MEDS ORDERED: LEVOTHYROXINE 75 MCG TAB PO SCH (07:00)
[2018-11-14 08:00] VITALS: BP 97/52; PULSE 56; RESP 16
[2018-11-14 08:58] VITALS: BP 109/58; PULSE 57; RESP 14
[2018-11-14] MEDS: CEFEPIME 1GM/50 ML (PMX) 50 ML IVPB SCH (09:19)
[2018-11-14] MEDS: ENOXAPARIN 40 MG/0.4 ML SYG SC SCH (09:20)
--- NOTE | 2018-11-14 10:46 | DS ---
Date/Time of Note Date/Time of Note DATE: 11/14/18 TIME: 10:38 Discharge Summary Admission/Discharge Info Admit Date/Time Nov 09, 2018 at 21:31 Discharge Date/Time Discharge Diagnosis 1. Acute on chronic encephalopathy, infection related, resolved 2. UTI, on antibiotics 3. Left upper lobe lesion, likely malignancy with post obstructive pneumonia, augmentin for 7 days 4. Multiple scattered osseous lytic lesions, suspicious for metastatic disease from lung cancer 5. Hypothyroidism: Continue levothyroxine 6. Dementia, severe, chronic Patient Condition: Stable Hospital Course This is an 82-year-old female with a history of dementia who presented from intermediate for more altered and combative behavior. According to staff the patient had been noticeably more altered and she was combative with the staff. Unknown what her baseline is. She does turn to sound and look however she does not respond to questions. She was the same way apparently in the emergency room as well. There is no family available. In the emergency department she had imaging studies are performed including a CT of the abdomen pelvis which showed signs of possible pneumonia. She also had a urinalysis performed that was positive for nitrites and leukoesterase. Pulmonary lesion on CT scan along with multiple scattered osseous lytic lesions raise the question of malignancy, like lung cancer with bony mets. I had a long discussion about the condition and treatment plans for this with patient's DPOA who decides no further test/intervention for this. Patient is on antibiotics for likelihood of postobstructive pneumonia that improves her symptoms. She is full alert, demented and confused and she is able to take orals. I will keep her on augment for 7 days. Urine with WBC 13 but urine culture is negative in 48 hours. Patient is severely demented. DPOA signs hospice care. PROCEDURE: CT Chest without contrast. CLINICAL INDICATION: Shortness of breath. Further evaluation of left lung consolidation seen on portable chest. TECHNIQUE: Spiral CT images through the chest without contrast. Coronal and sagittal reformatted images were obtained from the axial source images. The total exam CTDI equals 5.85 mGy and the total exam DLP equals 208.28 mGy-cm. One or more of the following dose reduction techniques were used: automated exposure control, adjustment of the mA and/or kV according to patient size, or use of iterative reconstruction technique. DICOM images are available. COMPARISON: CT 11/09/2018; DR NAZARIO 11/09/2018 FINDINGS: Lungs: Mild motion related artifact. There is a large, broad region of inho mogeneous consolidation centered laterally, posteriorly and inferiorly within the left upper lobe. There is surrounding ground-glass opacity. There are few adjacent sub-centimeter nodules for example measuring 5 mm along the posterior medial margin of the left lung on image 33. Additional lobulated region of opacity anteriorly within the left mid lung field, measuring 4.8 x 1.9 cm on axial image 59. Small left lower lobe nodules are seen measuring up to 8 mm on axial image 58. There are few tiny right lung nodules as well. Background of emphysema. Central airway is patent. Small left pleural effusion. No right-sided pleural, or pericardial effusion. No pneumothorax. Mediastinum: Evaluation for adenopathy is more limited without contrast. There appear to be scattered small nodes without bulky adenopathy seen. Atherosclerotic disease includes aortic and coronary arterial, without evidence of aortic aneurysm. Diminished intra-arterial density suggesting anemia. Heart size is within normal limits. Upper abdomen: Nonspecific small round nodule, perhaps a node, in the posterior superior right suprarenal space.. Musculoskeletal: Osteopenia with multilevel degenerative changes. Allowing for accentuated kyphosis and rightward rotation, there are several lytic osseous lesions, most notably within the T11 vertebral body centered to the right of midline and adjacent right pedicle, with slight loss of vertebral body height inferiorly. Lytic lucency is centered to the left of midline at the T4 and T5 vertebral body levels. There may be subtle lytic lucency within the mid left sternum. IMPRESSION: Broad region of consolidation within the left upper lobe, with several additional smaller nodules elsewhere within the lungs, and separate lobulated opacity anteriorly within the mid-left hemithorax. The appearance is nonspecific and may be on an infectious or inflammatory basis although given the presence of multiple lytic osseous lesions, and underlying emphysema, would raise concern for the possibility of malignancy with osseous metastatic disease. Further workup could include consideration for lung or osseous tissue sampling. Otherwise short-term followup could be obtained after treatment to assess for improvement. Atherosclerotic disease includes coronary arterial. Additional findings as above. RPTAT: HSAF RJoaquina Zuniga, Physician Date Time Electronically viewed and signed by Physician Jhony on 11/10/2018 02:47 PROCEDURE: CT Abdomen and Pelvis without contrast. CLINICAL INDICATION: Pain. TECHNIQUE: CT scan of the abdomen and pelvis was performed on a multidetector slice CT scanner. No intravenous contrast material was utilized. Sagittal and coronal reformatted images were obtained from the axial source images. Images were reviewed on a high-resolution PACS workstation. Exam CTDlvol = a point save mGy and DLP = 485 Gy-cm. One of the following 3 dose reduction techniques were used: Automated exposure control; adjustment of the mA and/or kV according to patient size; or use of iterative reconstruction technique. DICOM images are available. COMPARISON: None. FINDINGS: There is no bowel obstruction or ileus. The appendix is not identified. There is no secondary evidence for appendicitis. There are scattered sigmoid colon diverticuli without evidence for diverticulitis. There is no free fluid. The liver is overall normal in size. There are multiple hypodense lesions scattered throughout the liver consistent with cyst, largest in the right lobe 4.1 cm diameter. The gallbladder has been removed. There is no definite biliary ductal dilation. Pancreas is normal in appearance. The spleen is unremarkable. There are no adrenal masses. The aorta is normal caliber. Atherosclerotic vasc ular calcifications are present. Kidneys are normal in appearance without hydronephrosis, mass or calculus. Ureters are of normal caliber and without evidence for an obstructing calculus. The urinary bladder is normal in appearance. Uterus is unremarkable. The ovaries are not well characterized. Limited evaluation of the lung bases demonstrates bibasilar atelectasis. There are emphysematous changes throughout the lungs. There are atherosclerotic calcifications of the coronary arteries. Heart is mildly enlarged. There are degenerative changes of the lumbar spine. There are L4 spondylitic defects with associated 9.5 mm anterior subluxation of L3-L4. Prominent Schmorl's node superior endplate of L3. There is metal artifact from a left hip bipolar arthroplasty in position. There are multiple lytic with lesions identified, including the T11 posterior lateral vertebral body and pedicle, right posterior lamina and transverse process of L3, right iliac wing and ischium and left ilium. IMPRESSION: 1. Multiple scattered osseous lytic lesions, suspicious for metastatic disease. 2. No bowel obstruction or ileus. 3. Scattered sigmoid colon diverticuli without evidence for diverticulitis. 4. Appendix not identified. No secondary evidence for appendicitis. 5. Multiple liver lesions, likely representing cyst. Status post cholecystectomy. 6. No obstructive uropathy. 7. Status post left hip bipolar arthroplasty in anatomic position. 8. Degenerate changes lumbar C9 as described above. 9. Emphysematous changes of the lungs. RPTAT: HMVK .Harley Murray MD, MD Date Time Electronically viewed and signed by .Harley Murray MD, MD on 11/09/2018 20:18 Home Meds Active Scripts Amoxicillin/Potassium Clav (Amox-Clav 500-125 mg Tablet) 500-125 mg Tab, 1 TAB PO BID for 7 Days, TAB Prov:RY DESIR MD 11/14/18 Reported Medications Mirtazapine* (Mirtazapine*) 7.5 Mg Tablet, 7.5 MG PO HS, TAB 11/10/18 Alendronate Sodium* (Fosamax*) 70 Mg Tablet, 70 MG PO Q7D, #4 TAB 11/10/18 Levothyroxine Sodium* (Levothyroxine Sodium*) 50 Mcg Tablet, 50 MCG PO BEFORE BREAKFAST, #30 TAB 11/10/18 Follow-up Plan hospice care Primary Care Provider Care Physician No Primary RY DESIR MD Nov 14, 2018 10:46
[2018-11-14 14:00] VITALS: BP 117/59; PULSE 89; RESP 16
== END 2018-11-14 15:38 | disposition hospice, home (50) | DRG 194 ==
LOC: E/R 17:39 → TEL 21:31 → PP2 11-10 10:47
PROVIDERS: ADMIT Family Medicine; ATTEND Internal Medicine
DX: J18.9 Pneumonia, unspecified organism (principal); G93.40 Encephalopathy, unspecified; N39.0 Urinary tract infection, site not specified; C34.12 Malignant neoplasm of upper lobe, left bronchus or lung; C78.7 Secondary malignant neoplasm of liver and intrahepatic bile duct; C79.51 Secondary malignant neoplasm of bone; Y95 Nosocomial condition; E03.9 Hypothyroidism, unspecified; M81.0 Age-related osteoporosis without current pathological fracture; F03.90 Unspecified dementia, unspecified severity, without behavioral disturbance, psychotic disturbance, mood disturbance, and anxiety; Z66 Do not resuscitate
CPT/HCPCS: 36415; 71045; 71250; 74176; 80048; 80053; 80061; 81001; 83036; 83605; 83735; 84145; 84443; 84484; 85025; 85610; 85730; 87086; 92526; 92610; 93005; 96374; 96375; J0692; J1630; J1650; J3370; J7030